=== PATIENT | female | born 1990 | race Caucasian/White ===

== ENCOUNTER → 2020-01-27 10:24 | Outpatient (CLI) | payer BC, SELFPAY ==
[2020-01-27 12:29] LABS: Free T4, Direct Thyroxine 0.99 ng/dL (0.78-2.19)
[2020-01-27 12:43] LABS: Rubella Antibody IgG 53.9 IU/mL (>15)
[2020-01-28 08:08] LABS: Varicella IgG Antibody 277 index (Immune >165)
== END ==
PROVIDERS: PCP Student in an Organized Health Care Education/Training Program; Referring Provider Obstetrics & Gynecology; Visit Provider Obstetrics & Gynecology
DX: Z31.69 Encounter for other general counseling and advice on procreation (principal)
CPT/HCPCS: 36415; 84439; 84443; 86762; 86787

== ENCOUNTER → 2022-02-20 13:29 | Outpatient (CLI) | payer BC, SELFPAY ==
[2022-02-20 13:56] LABS: COVID19 -Nasal RAPID POSITIVE (Negative)
== END ==
PROVIDERS: PCP Student in an Organized Health Care Education/Training Program; Visit Provider Nurse Practitioner Family
DX: U07.1 COVID-19 (principal)
CPT/HCPCS: 87635